=== PATIENT | female | born 1965 | race Caucasian/White ===

== ENCOUNTER 2024-05-04 19:36 | Emergency (ER) | payer BC, SELFPAY ==
[2024-05-04 19:38] VITALS: BP 111/93; PULSE 98; RESP 16; TEMP 36.3; O2SAT 95; BMI 22.4
[2024-05-04] MEDS: 0.9% Normal Saline (1000mL) 1,000 ML 999 ML IV (20:51)
[2024-05-04] MEDS: Ondansetron 4 MG/2 ML Vial IV (20:54)
[2024-05-04] MEDS: Morphine 4 MG/ML Syringe IV ×2 (20:56→22:07)
[2024-05-04] MEDS: LORazepam 2 MG/ML Syringe 0.5 MG IV ×2 (21:01→22:07)
[2024-05-04 21:37] VITALS: BP 137/108; PULSE 87; RESP 18; O2SAT 97
--- NOTE | 2024-05-04 22:05 | EDS_ITS ---
HPI History of Present Illness Chief Complaint: Anxiety Narrative Narrative: Patient is a 59-year-old female with past medical history of cervical dystonia, anxiety who presented to the emergency department with a chief complaint of wrist pain and her anxiety being through the roof. Patient states that she has been diagnosed with cervical dystonia has been following with her neurologist and has had Botox in the past and she is scheduled to have Botox again. She states that she was given oxycodone for her pain control for her broken wrist that occurred on Friday however she states that she was not given Zofran therefore she has had vomiting not able to tolerate the pain medication which prompted her to come here for the valuation management. Patient states that she has a lot of family life stressors and notes that her son just recently relapsed from sobriety and is very concerned. She states that there has been multiple other family stressors recently and notes that this is taking a toll on her mentally. Patient denied any suicidal homicidal ideations. Patient states that she does have some difficulty with swallowing but this has been going on for a significant downtime secondary to cervical dystonia. Patient notes that she also is having difficulty with her vision which is also been going on for significant mount time she states that she followed up with her back maker today who states that her eye muscles are not appropriately functioning secondary to her cervical dystonia. [facility] Home Medications ?Medication ?Instructions ?Recorded ?Last Taken ?Type clonazepam 1 mg tablet 1 mg PO BID PRN anxiety 05/04/24 Unknown History ondansetron 4 mg disintegrating 4 mg PO Q6H PRN nausea and 05/04/24 Unknown Rx tablet vomiting #20 tabs oxycodone-acetaminophen 5 mg-325 1 tab PO Q6H PRN pain 3 days #12 05/04/24 Unknown Rx mg tablet (Percocet) tabs propranolol 20 mg tablet 20 mg PO BID 05/04/24 Unknown History sertraline 25 mg tablet 12.5 mg PO BID 05/04/24 Unknown History Allergy/AdvReac Type Severity Reaction Status Date / Time Sulfa (Sulfonamide Allergy RASH Verified 05/04/24 19:42 Antibiotics) Social History Smoking Status: Never smoker ROS ROS ED ROS Narrative Constitutional: Denies fevers, chills, headaches, lightness, dizziness Eyes: Denies change in vision double vision blurry vision Cardiovascular: Denies chest pain or palpitations Respiratory: Denies coughing wheezing shortness of breath Abdomen: Denies abdominal pain nausea vomiting diarrhea currently : Denies any painful urination, hematuria, polyuria Neurological: Denies numbness, weakness, tingling Musculoskeletal: Denies back pain complains of left wrist pain from her fall Skin: Denies any rashes or lesions EXAM Physical Exam Narrative Exam Narrative: General: Patient was lying in did appear to be very anxious and tearful during exam Head: Atraumatic, normocephalic Eyes: PERRL bilateral, EOMI bilateral, no conjunctival injection noted Neck: Soft, supple, trach midline Cardiovascular: Regular rate and rhythm no murmurs gallops rubs noted Respiratory: Clear to auscultation bilaterally no rales rhonchi or wheeze noted Abdomen: Soft, nondistended, nontender to palpation, bowel sounds present in 4 Extremities: Radial pulses +2/4 in the bilateral upper extremities, +5/5 strength in the bilateral upper and lower extremities, compartment soft compressible Neurological: Patient following commands knew that she was at [facility] there is 2023 Skin: Warm, dry, intact, patient does have some scattered ecchymosis over her left arm from her fractured wrist. Const Vital Signs: 05/04/24 19:38 05/04/24 21:37 05/04/24 23:00 Temperature 97.4 F L Temperature Source Oral Pulse Rate 98 87 82 Respiratory Rate 16 18 18 Blood Pressure 111/93 H 137/108 H 130/91 H Blood Pressure Mean 99 117 104 Pulse Ox 95 97 95 Oxygen Delivery Method Room Air Room Air MDM [facility] MDM Narrative Medical decision making narrative: Patient is a 59-year-old female who presented to the emergency department with a chief complaint of left wrist pain and anxiety. Patient will be given IV medications morphine, Zofran and Ativan and then be reevaluated. On reevaluation the patient she states that she is very anxious still and having pain still therefore more pain medication and Ativan will be ordered and she will be reevaluated. Reevaluation of the patient she is feeling better than when she arrived she would like to go home at this point time. Once again the patient is not suicidal nor homicidal. Patient will be given a prescription for Zofran and Percocet as she states that she was only given for oxycodone pills and she only has 2 of these left. Patient was advised to rotate Tylenol and ibuprofen [id number] and use the narcotic for breakthrough pain. She was advised not operate anything under the influence of these medications. She is advised to follow-up with her neurologist in outpatient setting and return with worsening symptoms or concerns. She is agreeable to plan all question concerns answered she is discharged home in stable condition. Discharge Plan Triage Chief Complaint: Anxiety Other Complaint: Upper Extremity Injury ED Provider: Jose Jacques Dx/Rx/DC Orders Clinical Impression: Anxiety, Left wrist pain, Fracture of left wrist Prescriptions: New oxycodone-acetaminophen [Percocet] 5-325 mg tablet 1 tab PO Q6H PRN (Reason: pain) 3 Days Qty: 12 0RF ondansetron 4 mg tablet,disintegrating 4 mg PO Q6H PRN (Reason: nausea and vomiting) Qty: 20 0RF No Action clonazepam 1 mg tablet 1 mg PO BID PRN (Reason: anxiety) sertraline 25 mg tablet 12.5 mg PO BID propranolol 20 mg tablet 20 mg PO BID Primary Care Provider: Ricardo Salinas Referrals: Ricardo Salinas MD [Primary Care Provider] - Activity Restrictions/Additional Instructions: Follow-up with your neurologist in outpatient setting. Return with worsening symptoms or concerns. Follow-up with your primary care physician outpatient setting. Print Language: Cameroonian Disposition Disposition: Home, Self Care
[2024-05-04 23:00] VITALS: BP 130/91; PULSE 82; RESP 18; O2SAT 95
[2024-05-05] MEDS: LORazepam 1 MG Tablet PO (00:24)
[2024-05-05 01:00] VITALS: BP 136/85; PULSE 80; RESP 18; O2SAT 95
--- NOTE | 2024-05-05 01:20 | ED.RN ---
PT UP FOR DISCHARGE BY PHYSICIAN. THIS NURSE ENTERS ROOM TO GIVE PT PAPERWORK TO GO HOME. PT AND STATE WE DO NOT WANT HER TO GO HOME BECAUSE WE FEAR SHE WILL HAVE ANOTHER PANIC ATTACK AND NOT BE ABLE TO SLEEP. PT ASKED THIS NURSE MULTIPLE TIMES FOR OTHER MEDICATION FOR PAIN WELL ANXIETY. DR. WAGNER MADE AWARE, AND NO FURTHER ORDERS WERE ENTERED AT THIS TIME. PT WAS GIVEN A PX FOR PERCOCET WELL ZOFRAN. PT NOT WANTING TO LEAVE HOSPITAL AND PT NOT WANTING TO BE ADMITTED TO A PSYCH FACILITY FOR EVALUATION. THIS NURSE ADVISED PT THAT THEY COULD SPEAK WITH CRISIS FOR ANXIETY CONCERNS. PT DENIED AT THIS TIME. CHARGE NURSE ADVISED, CHARGE NURSE MACY INTO ROOM TO SPEAK WITH PT AND . THEY WERE INFORMED WITH THE SAME INFORMATION AND THAT WE COULD CALL CRISIS TO GIVE THEM MORE RESOURCES AND TO BE EVALUATED. PT AND NOW AGREEING TO SPEAK WITH CRISIS. CRISIS EVALUATED, NO FURTHER PLAN OF CARE, PT REMAINS UP FOR DISCHARGE.
[2024-05-05 01:33] VITALS: BP 105/83; PULSE 82; RESP 18; TEMP 36.8; O2SAT 95
== END 2024-05-05 01:35 | disposition home or self-care (01) ==
PROVIDERS: Emergency Provider Emergency Medicine; PCP Family Medicine; Visit Provider Emergency Medicine
DX: F41.9 Anxiety disorder, unspecified (principal); S62.92XA Unspecified fracture of left hand, initial encounter for closed fracture; G24.3 Spasmodic torticollis; Z63.8 Other specified problems related to primary support group; Z63.79 Other stressful life events affecting family and household; Z79.899 Other long term (current) drug therapy; W19.XXXA Unspecified fall, initial encounter
CPT/HCPCS: 96361; 96374; 96375; 96376; 99285; J7030; A4216; J2405